=== PATIENT | female | born 1950 | race Caucasian/White ===

== ENCOUNTER → 2017-04-11 | Outpatient (CLI) | payer OTHER ==
--- NOTE | 2017-04-21 10:47 | RSPPFT ---
DATE OF PROCEDURE: 04/11/17 COMMENTS: VOLUMES DYNAMIC: FVC and FEV1 low normal. STATIC: FRC, RV and TLC normal. FLOWS: FEV1% normal; FEF 25-75 moderately reduced. DIFFUSION: Normal. FLOW VOLUME LOOP: Pattern of variable intrathoracic airways obstruction. IMPRESSION: Mild obstructive ventilatory defect with no significant reduction in diffusion and no hyperinflation. Airways resistance is increased and there is some improvement post-bronchodilator.
== END ==
LOC: PHRSP 09:30
PROVIDERS: ATTEND Internal Medicine
DX: J44.9 Chronic obstructive pulmonary disease, unspecified (principal)
CPT/HCPCS: 94060; 94620; 94726; 94729